=== PATIENT | female | born 1980 | race Caucasian/White ===

== ENCOUNTER 2021-06-06 00:30 | Emergency (ER) | payer OTHER ==
[~2021-06-06] VITALS: Ht 172.7 cm; Wt 71.9 kg
[2021-06-06] MEDS ORDERED: NORCO, ANEXSIA 5/325MG TABLET (HYDROcodone/ACETAMINOPHEN) PO ONE (06:20)
[2021-06-06] MEDS ORDERED: BOOSTRIX/ADACEL VACCINE (DIPHTH/PERTUSS/ACELL/TETANUS) 0.5ML SYR IM ONE (06:20)
[2021-06-06] MEDS ORDERED: AUGMENTIN 875 MG TAB PO ONE (06:20)
[2021-06-06] MEDS ORDERED: HYDR-3713 PO (07:20)
[2021-06-06] MEDS ORDERED: AUGM875T28 PO (07:20)
[2021-06-06] MEDS ORDERED: IBUP-1022 PO (07:20)
[2021-06-06 07:50] VITALS: BP 134/65
--- NOTE | 2021-06-06 13:06 | REPVR ---
PROCEDURE INFORMATION: Exam: XR Right Hand Exam date and time: 06/06/2021 6:23 AM Age: 41 years old Clinical indication: Pain; Hand; Right; Additional info: Dog bite TECHNIQUE: Imaging protocol: XR Right hand. Views: 3 or more views. COMPARISON: No relevant prior studies available. FINDINGS: Bones/joints: No acute fracture or dislocation is identified. Soft tissues: The soft tissues are mildly swollen posteriorly over the metacarpals, and there is some subcutaneous gas here. No radiopaque foreign body is identified. IMPRESSION: Mild soft tissue swelling posteriorly over the metacarpals with some subcutaneous gas in the region, without radiopaque foreign body or acute fracture identified. Electronically signed by: Arie Carter On 06/06/2021 13:05:37 PM
== END 2021-06-06 07:55 | disposition home or self-care (01) ==
LOC: M ED 00:30
DX: S61.451A Open bite of right hand, initial encounter (principal); W54.0XXA Bitten by dog, initial encounter; Y92.9 Unspecified place or not applicable; Y93.9 Activity, unspecified; Y99.9 Unspecified external cause status